=== PATIENT | male | born 1970 | race Caucasian/White ===

== ENCOUNTER 2020-01-23 17:15 | Emergency (ER) | payer SELFPAY ==
[2020-01-23] MEDS ORDERED: LORazepam 2 MG/ML VIAL As Ordered ONE (17:39)
[2020-01-23] MEDS ORDERED: THIAMINE 200MG/2ML VIAL (J3411 PER 100MG) As Ordered ONE (18:27)
[2020-01-23] MEDS ORDERED: OXAZEPAM 15 MG CAP As Ordered ONE (18:28)
--- NOTE | 2020-02-22 15:24 | ECGEPIP ---
SINUS TACHYCARDIA ABNORMAL RHYTHM ECG NONSPECIFIC ST & T-WAVE ABNORMALITY SEE SCANNED DOWNTIME REPORT MTDD
[2020-03-08 12:56] LABS: BASO % 0.8 % (0.0-1.0); EOS % 0.2 % (0.0-3.0); HEMATOCRIT 41.2 % (42.0-52.0); HEMOGLOBIN 14.4 g/dl (13.5-17.5); LYMPH # 0.6 10^3/uL (1.5-5.0); LYMPH % 12.2 % (24.0-44.0); MEAN CORPUSCULAR HEMOGLOBIN 37.9 pg (27.0-33.0); MEAN CORPUSCULAR VOLUME 108.4 fl (80.0-96.0); MONO # 0.5 10^3/uL (0.0-0.8); MONO % 10.2 % (0.0-5.0); NEUTROPHILS # 3.7 10^3/uL (1.5-8.5); NEUTROPHILS % 75.6 % (36.0-66.0); WHITE BLOOD COUNT 4.9 10^3/uL (4.0-10.0)
[2020-03-08 12:57] LABS: PLATELET COUNT, AUTOMATED 63 10^3/uL (150-450)
[2020-04-15 12:23] LABS: ACETAMINOPHEN LEVEL < 2.0 UG/ML (10.0-30.0); ALBUMIN 3.8 GM/DL (3.2-5.2); ALT/SGPT 102 U/L (12-78); AMPHETAMINES LEVEL URINE NEGATIVE (NEGATIVE); BARBITURATES URINE NEGATIVE (NEGATIVE); BENZODIAZEPINES URINE NEGATIVE (NEGATIVE); BILIRUBIN,TOTAL 1.4 MG/DL (0.2-1.0); BLOOD UREA NITROGEN 10 MG/DL (7-18); CALCIUM LEVEL 9.6 MG/DL (8.5-10.1); CANNABINOIDS URINE NEGATIVE (NEGATIVE); CARBON DIOXIDE LEVEL 25 MEQ/L (21-32); CHLORIDE LEVEL 96 MEQ/L (98-107); COCAINE METABOLITE URINE NEGATIVE (NEGATIVE); ETHYL ALCOHOL (ETHANOL) < 0.003 % (0.000-0.010); GLOMERULAR FILTRATION RATE > 60.0 (>56); GLUCOSE, FASTING 108 MG/DL (70-100); METHADONE URINE NEGATIVE (NEGATIVE); OPIATES URINE NEGATIVE (NEGATIVE); PHENCYCLIDINE URINE NEGATIVE (NEGATIVE); POTASSIUM SERUM 3.4 MEQ/L (3.5-5.1); SODIUM LEVEL 134 MEQ/L (136-145); TOTAL PROTEIN 6.6 GM/DL (6.4-8.2)
== END 2020-01-23 21:00 | disposition home or self-care (01) ==
LOC: M ED 17:15
DX: F10.10 Alcohol abuse, uncomplicated (principal); K70.10 Alcoholic hepatitis without ascites; D69.6 Thrombocytopenia, unspecified; R94.31 Abnormal electrocardiogram [ECG] [EKG]; Z88.0 Allergy status to penicillin
CPT/HCPCS: 70450; 80053; 80307; 85025; 85049; 85055; 93005; 96372; 96374; 99285; G0480; J2060; J3411